=== PATIENT | female | born 2005 | race Caucasian/White ===

== ENCOUNTER 2024-02-20 23:52 | Emergency (ER) | payer OTHER ==
[2024-02-21] MEDS ORDERED: Lidocaine 1% (PF) 30 ML VIAL ONE (00:40)
== END 2024-02-21 01:29 | disposition home or self-care (01) ==
LOC: CSHERS 23:52
DX: S63.501A Unspecified sprain of right wrist, initial encounter (principal); S01.81XA Laceration without foreign body of other part of head, initial encounter; W22.8XXA Striking against or struck by other objects, initial encounter
CPT/HCPCS: 12011; J2001

== ENCOUNTER 2024-02-28 18:13 | Emergency (ER) | payer OTHER | END 2024-02-28 18:36 | disposition home or self-care (01) | LOC: CSHERS 18:13 | DX: S01.81XD Laceration without foreign body of other part of head, subsequent encounter (principal); X58.XXXD Exposure to other specified factors, subsequent encounter ==